=== PATIENT | male | born 1960 | race Caucasian/White ===

== ENCOUNTER 2019-10-26 05:17 | Day surgery (SDC) | payer MEDICAID, SELFPAY ==
[~2019-10-26] VITALS: Ht 182.9 cm; Wt 90.7 kg
[2019-10-26 06:32] LABS: BASOPHILS # (AUTO) 0.1 K/uL (0.00-0.22); BASOPHILS % (AUTO) 0.6 % (0.0-2.0); EOSINOPHILS # (AUTO) 0.3 K/uL (0-0.4); EOSINOPHILS % (AUTO) 3.2 % (0.0-4.0); HEMATOCRIT 37.6 % (36-52); HEMOGLOBIN 12.7 g/dL (12.0-18.0); LYMPHOCYTES # (AUTO) 2.4 K/uL (2.0-11.5); LYMPHOCYTES % (AUTO) 26.8 % (20.5-51.1); MEAN CORPUSCULAR HEMOGLOBIN 30 pg (27-31); MEAN CORPUSCULAR HGB CONC 34 g/dL (33-37); MEAN CORPUSCULAR VOLUME 87.9 fL (80-94); MONOCYTES # (AUTO) 0.9 K/uL (0.8-1.0); NEUTROPHILS # (AUTO) 5.3 K/uL (1.8-7.7); NEUTROPHILS % (AUTO) 59.4 % (42.2-75.2); PLATELET COUNT (AUTO) 253 K/uL (140-450); RED BLOOD CELL COUNT(AUTO) 4.28 MIL/uL (4.20-6.10); WHITE BLOOD COUNT (AUTO) 8.9 K/uL (4.8-10.8)
[2019-10-26 06:52] LABS: ALBUMIN 3.1 g/dL (3.4-5.0); ANION GAP 12.4 (8-16); CARBON DIOXIDE 28.6 mmol/L (21-32); CREATININE 0.9 mg/dL (0.6-1.3); TOTAL BILIRUBIN 0.5 mg/dL (0.0-1.0)
[2019-10-26] MEDS ORDERED: NACL 0.9% 1,000 ML IV SCH (09:26)
[2019-10-26] MEDS ORDERED: MEPERIDINE 25 MG/ML SYR IVP PRN (09:30)
[2019-10-26] MEDS ORDERED: diphenhydrAMINE 50 MG/ML VIAL IVP PRN (09:30)
[2019-10-26] MEDS ORDERED: ONDANSETRON 4 MG/2 ML VIAL IVP PRN (09:30)
[2019-10-26] MEDS ORDERED: BLOOD GLUCOSE MONITORING 1 DEV DEV FS SCH (09:30)
[2019-10-26] MEDS: fentaNYL citrate 0.05 MG/ML VIAL ONE ×2 (09:30→09:40)
[2019-10-26] MEDS ORDERED: fentaNYL citrate 0.05 MG/ML VIAL IVP PRN (09:35)
== END 2019-10-26 11:10 | disposition home or self-care (01) ==
LOC: MDS 05:17 → MFCC 05:50 → MDS 11:10
PROVIDERS: ATTEND Internal Medicine Gastroenterology
DX: K83.3 Fistula of bile duct (principal); I10 Essential (primary) hypertension; E78.00 Pure hypercholesterolemia, unspecified; E11.9 Type 2 diabetes mellitus without complications; Z90.49 Acquired absence of other specified parts of digestive tract; Z87.891 Personal history of nicotine dependence; Z98.890 Other specified postprocedural states; Z11.59 Encounter for screening for other viral diseases
CPT/HCPCS: 36415; 43274; 71045; 74330; 80053; 85025; C1769; C2625; J3010; J7030; Q0092; Q9965; U0003

== ENCOUNTER 2019-11-06 06:36 | Outpatient (CLI) | payer MEDICAID, SELFPAY | END 2019-11-06 18:03 | disposition home or self-care (01) | LOC: MUS 06:36 | DX: K81.0 Acute cholecystitis (principal) | CPT/HCPCS: 76705 ==

== ENCOUNTER 2019-12-07 07:20 | Day surgery (SDC) | payer MEDICAID, SELFPAY ==
[~2019-12-07] VITALS: Ht 185.4 cm; Wt 95.3 kg
[2019-12-07 07:59] LABS: BASOPHILS % (AUTO) 0.4 % (0.0-2.0); EOSINOPHILS # (AUTO) 0.2 K/uL (0-0.4); EOSINOPHILS % (AUTO) 2.3 % (0.0-4.0); HEMATOCRIT 38.2 % (36-52); HEMOGLOBIN 12.9 g/dL (12.0-18.0); LYMPHOCYTES % (AUTO) 30.7 % (20.5-51.1); MEAN CORPUSCULAR HEMOGLOBIN 29 pg (27-31); MEAN CORPUSCULAR HGB CONC 34 g/dL (33-37); MEAN CORPUSCULAR VOLUME 85.8 fL (80-94); MONOCYTES # (AUTO) 0.6 K/uL (0.8-1.0); MONOCYTES % (AUTO) 6.4 % (1.7-9.3); NEUTROPHILS # (AUTO) 5.9 K/uL (1.8-7.7); NEUTROPHILS % (AUTO) 60.2 % (42.2-75.2); PLATELET COUNT (AUTO) 447 K/uL (140-450); RED BLOOD CELL COUNT(AUTO) 4.45 MIL/uL (4.20-6.10); RED CELL DISTRIBUTION WIDTH 14.1 % (11.6-13.7); WHITE BLOOD COUNT (AUTO) 9.9 K/uL (4.8-10.8)
[2019-12-07 08:16] LABS: ALBUMIN 3.2 g/dL (3.4-5.0); CARBON DIOXIDE 27.4 mmol/L (21-32); CREATININE 0.9 mg/dL (0.6-1.3); POTASSIUM 4.4 mmol/L (3.5-5.1); TOTAL BILIRUBIN 0.3 mg/dL (0.0-1.0)
[2019-12-07] MEDS ORDERED: INSULIN REGULAR, HUMAN 100 UNIT/ML VIAL SUBQ SCH (09:10)
[2019-12-07] MEDS ORDERED: KETAMINE 500 MG/5 ML VIAL ONE (10:31)
[2019-12-07] MEDS ORDERED: LIDOCAINE MPF 2% 100 MG/5 ML VIAL INJ ONE (10:31)
[2019-12-07] MEDS ORDERED: LABETALOL 100 MG/20 ML VIAL ONE (10:31)
[2019-12-07] MEDS ORDERED: MEPERIDINE 50 MG/ML SYR ONE (10:31)
[2019-12-07] MEDS ORDERED: METOCLOPRAMIDE 10 MG/2 ML INJ VIAL ONE (10:31)
[2019-12-07] MEDS ORDERED: PROPOFOL 200 MG/20 ML VIAL IV ONE (10:31)
[2019-12-07] MEDS ORDERED: MIDAZOLAM 2 MG/2 ML VIAL ONE (10:31)
[2019-12-07] MEDS ORDERED: NACL 0.9% 1,000 ML IV SCH (11:21)
[2019-12-07] MEDS ORDERED: HYDROmorphone 1 MG/ML AMP IVP PRN (11:25)
[2019-12-07] MEDS ORDERED: ONDANSETRON 4 MG/2 ML VIAL IVP PRN (11:25)
[2019-12-07] MEDS ORDERED: BLOOD GLUCOSE MONITORING 1 DEV DEV FS ONE (11:25)
[2019-12-07] MEDS ORDERED: diphenhydrAMINE 50 MG/ML VIAL IVP PRN (11:25)
== END 2019-12-07 12:15 | disposition home or self-care (01) ==
LOC: MDS 07:20 → MMU 07:20 → MDS 12:15
PROVIDERS: ATTEND Internal Medicine Gastroenterology
DX: K83.3 Fistula of bile duct (principal); K81.9 Cholecystitis, unspecified; E11.9 Type 2 diabetes mellitus without complications; M19.90 Unspecified osteoarthritis, unspecified site; Z20.828 Contact with and (suspected) exposure to other viral communicable diseases; F17.200 Nicotine dependence, unspecified, uncomplicated; I10 Essential (primary) hypertension; E78.00 Pure hypercholesterolemia, unspecified; Z79.84 Long term (current) use of oral hypoglycemic drugs
CPT/HCPCS: 36415; 43275; 71045; 74328; 80053; 85025; 93005; J2001; J2175; J2250; J2704; J2765; J3490; J7030; U0003; 74330